=== PATIENT | female | born 1985 | race Caucasian/White ===

== ENCOUNTER 2018-01-06 21:52 | Outpatient (CLI) | payer OTHER ==
[2018-01-06 23:47] VITALS: BP 116/85
[2018-01-07] MEDS ORDERED: LACTATED RINGERS 500 ML IV ONE (01:39)
--- NOTE | 2018-01-07 03:01 | Ultrasound Report ---
FINAL REPORT EXAM: US OB > = 14 WEEKS FETUS HISTORY: no care TECHNIQUE: Transabdominal imaging was obtained the pelvis including Doppler interrogation of the uterus. FINDINGS: There is a single viable intrauterine in cephalic presentation with an estimated sonographic gestational age of 33 weeks 2 days based on sonographic criteria. The heart rate is 139 BPM. The KALYANI is 12.8 cm which is normal. The placenta is anterior in position and is grade 2. There are no gross anomalies involving the stomach, kidneys, bladder, diaphragm, heart, three-vessel cord or within the spine. The abdominal cord insertion, four-chamber view of the heart, and neuro anatomy are not well seen. Measured indices are remarkable for the abdominal circumference corresponding to 31 weeks 5 days. Estimated weight is 2006 grams. The cervical length is 4.7 cm. The cervix is closed. IMPRESSION: Single viable intrauterine in cephalic presentation, 33 weeks 2 days as described. Normal heart rate of 139 BPM. No gross anomalies as described.
== END 2018-01-07 02:00 | disposition home or self-care (01) ==
LOC: TRG 21:52
PROVIDERS: ATTEND Obstetrics & Gynecology
DX: O47.03 False labor before 37 completed weeks of gestation, third trimester (principal); Z3A.33 33 weeks gestation of pregnancy
CPT/HCPCS: 59025; 76805; J7120